=== PATIENT | male | born 1955 | race Caucasian/White ===

== ENCOUNTER → 2017-01-18 | Outpatient (CLI) | payer OTHER ==
[~2017-01-18] MED LIST: ALBUTEROL SULF8.5 GM IH; ALLOPURINOL100 MG PO; AMLODIPINE BESY10 MG PO; AMOXICILLIN250 MG PO; AMPICILLIN SODIU1 GM IV; AMPICILLIN SODIU2 GM IV; ARANESP100 MCG/0. SC; ASPIRIN325 MG PO; AUGMENTIN875 MG PO; CALCITRIOL0.25 MCG PO; CALCITRIOL0.5 MCG PO; CEFTRIAXONE2 G1 IV; CIPRO750 MG PO; CLONIDINE HCL0.1 MG PO; COLACE100 MG PO; CONSTULOSE10 GM/15 M PO; COZAAR50 MG PO; Colace PO; Coumadin,Jantoven PO; Cozaar PO; DAILY VALUE1 EACH PO; DRISDOL50000 UNIT PO; Dulcolax PO; ECOTRIN325 MG PO; ERGOCALCIF50000 UNIT PO; FEROSUL325 MG PO; FUROSEMIDE40 MG PO; Feosol PO; GENGRAF PO; GENTAMICIN SULF30 GM TP; HEPARIN LO IV; HEPARIN SO5000 UNITS TD; IRON INJECTIONS; IRON325 MG PO; Inderal PO; LABETALOL HCL100 MG PO; LABETALOL HCL200 MG PO; LANTUS 3 M100 UNITS1 SC; LANTUS100 UNIT/1; LASIX20 MG PO; LASIX40 MG PO; LASIX80 MG PO; LEVAQUIN750 MG PO; LEVOFLOXACIN500 MG PO; LITE COAT ASPI325 M1 PO; LONITEN PO; LONITEN2.5 MG PO; Lasix PO; MAGNESIUM 300300 MG PO; MAGNESIUM250 MG PO; MAGNESIUM400 MG PO; MAGOX 400400 MG PO; MEDROL DOSEPAK4 MG PO; MEN'S ONE DAIL1 EACH PO; MINOXIDIL2.5 MG PO; MIRALAX255 GM PO; MONTELUKAST SOD10 MG PO; MUCINEX600 MG PO; MULTIPLE VITAM1 EACH PO; Mag-Ox PO; NEORAL,GENGRAF25 MG PO; NEPHRO-VITE,1 TABLET PO; NORCO 5/3251 TABLET PO; NORVASC10 MG PO; Normodyne,Trandate PO; Norvasc PO; OMEPRAZOLE40 M1 PO; ONE-A-DAY MEN'1 EACH PO; OXYCODONE HCL10 MG PO; OXYCODONE HCL15 MG PO; OXYCODONE15 MG PO; PARICALCITOL1 MCG PO; PREDNISONE20 MG PO; PROCRIT10000 UNI1 SC; Pepcid PO; RANITIDINE HCL150 M1 PO; RANITIDINE HCL150 MG PO; RENVELA800 MG PO; STOOL SOFTENER100 M1 PO; Senokot S,Pericolace PO; THERAGRAN1 TABLET PO; VITAMIN D400 UNIT PO; Vitamin D, Drisdol PO; Xifaxan PO; ZEMPLAR1 MCG PO; ZOFRAN4 MG PO; [UNRECOGNIZED DRUG - OTHER] IV; oxyCODONE PO
== END | disposition home or self-care (01) ==
LOC: AMB 09:40
PROC: 0HB5XZX Excision of Chest Skin, External Approach, Diagnostic (ICD-10-PCS; principal; 2017-01-18)
DX: L92.8 Other granulomatous disorders of the skin and subcutaneous tissue (principal); Z85.828 Personal history of other malignant neoplasm of skin
CPT/HCPCS: 88304

== ENCOUNTER 2017-10-20 11:01 | Day surgery (SDC) | payer OTHER ==
[~2017-10-20] VITALS: Ht 180.3 cm; Wt 93.8 kg
[~2017-10-20 11:01] MED LIST changes: +COZAAR25 MG PO; +HEPARIN LO10 UNITS/M IV; +NEPHRO-VITE RX1 EACH PO; +NORMODYNE,TRAN200 MG PO; +PROCARDIA XL90 MG PO
[2017-10-20 11:32] LABS: HEMATOCRIT 31.2 % (38.0-50.0); HEMOGLOBIN 10.6 G/DL (12.5-16.6); MCH 29.6 PG (29.0-34.0); MCV 87.2 FL (86-99); PLATELET COUNT 104 K/uL (156-360); RBC DIS.WIDTH-CV 15.6 % (11.8-14.6); RBC DIS.WIDTH-SD 49.7 % (39-53); RED BLOOD COUNT 3.58 M/uL (4.00-5.50); WHITE BLOOD COUNT 4.7 K/uL (4.1-10.2)
[2017-10-20 11:53] VITALS: BP 143/79
[2017-10-20 12:00] LABS: CHLORIDE 98 MEQ/L (99-109); CREATININE 2.7 MG/DL (0.6-1.3); GFR ESTIMATE (CALCULATED) 26 mL/min/ (58.99-99999); GLUCOSE 102 mg/dL (70-99); SODIUM 137 MEQ/L (136-147); UREA NITROGEN (BUN) 13 mg/dL (9-23)
[2017-10-20] MEDS ORDERED: NORCO 5/3251 TABLET PO (16:22)
[2017-10-20 18:42] VITALS: BP 175/84
[2017-10-20 19:35] VITALS: BP 170/85
== END 2017-10-20 19:45 | disposition home or self-care (01) ==
LOC: SDC 11:01
PROVIDERS: Surgery
PROC: 0WHG43Z Insertion of Infusion Device into Peritoneal Cavity, Percutaneous Endoscopic Approach (ICD-10-PCS; principal; 2017-10-20)
DX: I12.0 Hypertensive chronic kidney disease with stage 5 chronic kidney disease or end stage renal disease (principal); N18.6 End stage renal disease; Z99.2 Dependence on renal dialysis; Z94.4 Liver transplant status; N40.0 Benign prostatic hyperplasia without lower urinary tract symptoms; N25.81 Secondary hyperparathyroidism of renal origin; D63.8 Anemia in other chronic diseases classified elsewhere; E55.9 Vitamin D deficiency, unspecified; M10.9 Gout, unspecified; K21.9 Gastro-esophageal reflux disease without esophagitis; E11.22 Type 2 diabetes mellitus with diabetic chronic kidney disease; J44.9 Chronic obstructive pulmonary disease, unspecified; Z85.828 Personal history of other malignant neoplasm of skin; M19.90 Unspecified osteoarthritis, unspecified site; Z86.19 Personal history of other infectious and parasitic diseases; Z87.11 Personal history of peptic ulcer disease; Z79.01 Long term (current) use of anticoagulants; Z88.8 Allergy status to other drugs, medicaments and biological substances; Z91.048 Other nonmedicinal substance allergy status; Z82.49 Family history of ischemic heart disease and other diseases of the circulatory system; Z83.3 Family history of diabetes mellitus; Z84.1 Family history of disorders of kidney and ureter; Z80.3 Family history of malignant neoplasm of breast; Z80.8 Family history of malignant neoplasm of other organs or systems
CPT/HCPCS: 80048; 82948; 85027; C1750; J0360; J0690; J1100; J1170; J1885; J2405; J2710; J3010; J7643; S0020

== ENCOUNTER 2017-11-16 12:22 | Day surgery (SDC) | payer OTHER ==
[~2017-11-16] VITALS: Ht 180.3 cm; Wt 93.8 kg
[2017-11-16 12:49] VITALS: BP 161/84
[2017-11-16 12:58] LABS: HEMATOCRIT 27.1 % (38.0-50.0); MCV 84.2 FL (86-99)
[2017-11-16 13:16] LABS: CHLORIDE 110 mEq/L (99-109); POTASSIUM 5.3 mEq/L (3.7-5.4); SODIUM 139 mEq/L (136-147)
[2017-11-16 13:18] LABS: GLUCOSE 78 mg/dL (70-99)
[2017-11-16 13:21] LABS: CREATININE 3.8 mg/dL (0.6-1.3); GFR ESTIMATE (CALCULATED) 17 mL/min/ (58.99-99999)
[2017-11-16 13:22] LABS: UREA NITROGEN (BUN) 29 mg/dL (9-23)
[2017-11-16 17:30] VITALS: BP 214/97
[2017-11-16 18:00] VITALS: BP 187/89
[2017-11-16 18:39] VITALS: BP 186/92
[2017-11-16 19:23] VITALS: BP 176/91
== END 2017-11-16 19:36 | disposition home or self-care (01) ==
LOC: SDC 12:22
PROVIDERS: Surgery
PROC: 0JWT33Z Revision of Infusion Device in Trunk Subcutaneous Tissue and Fascia, Percutaneous Approach (ICD-10-PCS; principal; 2017-11-16)
DX: T85.611A Breakdown (mechanical) of intraperitoneal dialysis catheter, initial encounter (principal); Y81.2 Prosthetic and other implants, materials and accessory general- and plastic-surgery devices associated with adverse incidents; I12.0 Hypertensive chronic kidney disease with stage 5 chronic kidney disease or end stage renal disease; N18.6 End stage renal disease; Z99.2 Dependence on renal dialysis; J44.9 Chronic obstructive pulmonary disease, unspecified; N40.0 Benign prostatic hyperplasia without lower urinary tract symptoms; E21.3 Hyperparathyroidism, unspecified; K21.0 Gastro-esophageal reflux disease with esophagitis; B18.2 Chronic viral hepatitis C; Z87.891 Personal history of nicotine dependence; Z88.8 Allergy status to other drugs, medicaments and biological substances; Z91.040 Latex allergy status
CPT/HCPCS: 80048; 85014; 85018; J0690; J1100; J2405; J2710; J3010; J7643; S0020

== ENCOUNTER 2017-11-28 13:46 | Emergency (ER) | payer OTHER ==
[~2017-11-28] VITALS: Ht 180.3 cm; Wt 89.1 kg
[2017-11-28] MEDS ORDERED: NAPROSYN500 MG PO (14:34)
[2017-11-28 15:00] VITALS: BP 154/94
== END 2017-11-28 15:00 | disposition home or self-care (01) ==
LOC: EME 13:46
DX: S80.02XA Contusion of left knee, initial encounter (principal); W22.8XXA Striking against or struck by other objects, initial encounter; I12.0 Hypertensive chronic kidney disease with stage 5 chronic kidney disease or end stage renal disease; E11.22 Type 2 diabetes mellitus with diabetic chronic kidney disease; N18.6 End stage renal disease; Z99.2 Dependence on renal dialysis; Z94.4 Liver transplant status; Z79.84 Long term (current) use of oral hypoglycemic drugs; Z85.828 Personal history of other malignant neoplasm of skin; Z87.891 Personal history of nicotine dependence
CPT/HCPCS: 73564; 99281; 99284

== ENCOUNTER 2017-12-11 15:44 | Day surgery (SDC) | payer OTHER ==
[~2017-12-11] VITALS: Ht 180.3 cm; Wt 93.7 kg
[~2017-12-11 15:44] MED LIST changes: +NAPROSYN500 MG PO
[2017-12-11 16:30] LABS: HEMATOCRIT 31.9 % (38.0-50.0); MCH 30.4 PG (29.0-34.0); MCHC 34.5 G/DL (30.0-36.0); MCV 88.1 FL (86-99); PLATELET COUNT 119 K/uL (156-360); RBC DIS.WIDTH-CV 15.2 % (11.8-14.6); RBC DIS.WIDTH-SD 48.7 % (39-53); RED BLOOD COUNT 3.62 M/uL (4.00-5.50); WHITE BLOOD COUNT 6.7 K/uL (4.1-10.2)
[2017-12-11 16:42] LABS: CHLORIDE 106 mEq/L (99-109); SODIUM 135 mEq/L (136-147)
[2017-12-11 16:44] LABS: GLUCOSE 92 mg/dL (70-99)
[2017-12-11 16:48] LABS: GFR ESTIMATE (CALCULATED) 16 mL/min/ (58.99-99999)
[2017-12-11 16:49] LABS: UREA NITROGEN (BUN) 23 mg/dL (9-23)
[2017-12-11 16:51] LABS: POTASSIUM 6.4 mEq/L (3.7-5.4)
== END 2017-12-12 00:46 | disposition home or self-care (01) ==
LOC: SDC 15:44 → 2SOUTH 22:43 → ENRESERV 23:04 → CANRESERV 23:38 → ENRESERV 23:38 → 2SOUTH 12-12 00:46
PROVIDERS: Surgery
PROC: 0JWT33Z Revision of Infusion Device in Trunk Subcutaneous Tissue and Fascia, Percutaneous Approach (ICD-10-PCS; principal; 2017-12-11)
DX: T85.611A Breakdown (mechanical) of intraperitoneal dialysis catheter, initial encounter (principal); K66.0 Peritoneal adhesions (postprocedural) (postinfection); Z94.4 Liver transplant status; I12.0 Hypertensive chronic kidney disease with stage 5 chronic kidney disease or end stage renal disease; E11.22 Type 2 diabetes mellitus with diabetic chronic kidney disease; N18.6 End stage renal disease; Z99.2 Dependence on renal dialysis; D64.9 Anemia, unspecified; J44.9 Chronic obstructive pulmonary disease, unspecified; E21.3 Hyperparathyroidism, unspecified; K21.0 Gastro-esophageal reflux disease with esophagitis; B18.2 Chronic viral hepatitis C; Z85.828 Personal history of other malignant neoplasm of skin; Z89.511 Acquired absence of right leg below knee; Z79.899 Other long term (current) drug therapy
CPT/HCPCS: 80048; 82948; 84132 91; 85027; 87641; 94002; G0378; J0330; J0690; J1170; J2405; J2710; J3010; J7643; S0020